=== PATIENT | male | born 1965 | race Caucasian/White ===

== ENCOUNTER 2018-06-24 19:15 | Emergency (ER) | END 2018-06-24 21:23 | disposition home or self-care (01) ==

== ENCOUNTER 2018-11-06 10:28 | Emergency (ER) | payer MEDICARE ==
[~2018-11-06] VITALS: Ht 182.9 cm; Wt 102.2 kg
[~2018-11-06 10:28] MED LIST: CEPH-443 PO; MTF1000T PO; ONDA4TAB35 PO; SULF1TAB31 PO
[2018-11-06 10:31] VITALS: Ht 182.9 cm; Wt 102.2 kg
[2018-11-06] MEDS ORDERED: LIDOCAINE 1% (MPF) 5 ML VIAL SC ONE (12:00)
--- NOTE | 2018-11-06 12:23 | ERD ---
ER Documentation Chief Complaint Chief Complaint PICC LINE LT ARM , NOT WORKING WELL HPI Patient is a 53-year-old male with diabetes who presents with a PICC line issue. He has a PICC line in the left upper extremity which is not working properly. The meds were taking too long to go him. He is receiving antibiotics for a foot infection. ROS All systems reviewed and are negative except as per history of present illness. Medications Home Meds Active Scripts Sulfamethoxazole/Trimethoprim* (Bactrim Ds* Tablet) 1 Each Tablet, 1 TAB PO BID, #20 TAB Prov:GIULIANA KAUR PA-C 06/24/18 Cephalexin* (Keflex*) 500 Mg Capsule, 500 MG PO QID for 10 Days, CAP Prov:GIULIANA KAUR PA-C 06/24/18 Ondansetron Hcl* (Zofran* ODT) 4 mg -ODT Tab.disper, 4 MG PO Q6 PRN for NAUSEA AND/OR VOMITING, #30 TAB Prov:ZENY ANGEL MD 04/04/15 Reported Medications Metformin* (Glucophage*) 1,000 Mg Tablet, 1000 MG PO BID, TAB 04/04/15 Allergies Allergies: Coded Allergies: No Known Allergies (Verified Allergy, Mild, 06/24/18) PMhx/Soc History of Surgery: Yes (back) Anesthesia Reaction: No Hx Neurological Disorder: Yes Hx Respiratory Disorders: No Hx Cardiac Disorders: Yes (HTN) Hx Psychiatric Problems: No Hx Miscellaneous Medical Probl: Yes (DM) Hx Alcohol Use: Yes Hx Substance Use: No Hx Tobacco Use: No FmHx Family History: diabetes Physical Exam Vitals Vital Signs Date Temp Pulse Resp B/P (MAP) Pulse Ox O2 O2 Flow FiO2 Time Delivery Rate 11/06/18 98.6 124 18 137/80 100 10:31 (99) Physical Exam Const: No acute distress Head: Atraumatic Eyes: Normal Conjunctiva ENT: Normal External Ears, Nose and Mouth. Neck: Full range of motion. No meningismus. Resp: Clear to auscultation bilaterally Cardio: Regular rate and rhythm, no murmurs Abd: Soft, non tender, non distended. Normal bowel sounds Skin: No petechiae or rashes Back: No midline or flank tenderness Ext: PICC line in left upper extremity Neur: Awake and alert Psych: Normal Mood and Affect Results 24 hrs Current Medications Medications Dose Sig/Maritza Start Time Status Last (Trade) Ordered Route PRN Stop Time Admin Dose Reason Admin Lidocaine 5 ml ONCE ONCE 11/06/18 DC (Xylocaine SC 12:00 11/06/18 1% (Mpf)) 12:01 Procedures/MDM Smoking Cessation Therapy: Pt. was lectured for greater than 3 minutes on the health risks of continued smoking and the benefits of cessation. Patient is a 53-year-old male who presents with a PICC line issue. The PICC line has been slightly removed. I spoke with our PICC nurse who is going to replace the PICC line. The patient will be discharged following replacement. Departure Diagnosis: Primary Impression: Status post PICC central line placement Condition: ZENY Moore MD Nov 06, 2018 12:23
== END 2018-11-06 14:05 | disposition home or self-care (01) ==
LOC: E/R 10:28
DX: Z45.2 Encounter for adjustment and management of vascular access device (principal); I10 Essential (primary) hypertension; E11.9 Type 2 diabetes mellitus without complications; Z79.84 Long term (current) use of oral hypoglycemic drugs
CPT/HCPCS: 36569; 71045